=== PATIENT | female | born 1990 | race African-American/Black ===

== ENCOUNTER 2023-05-30 05:49 | Emergency (ER) | payer OTHER ==
[~2023-05-30] VITALS: Ht 157.5 cm; Wt 82.1 kg
[2023-05-30 06:03] VITALS: BP 115/73; O2SAT 100
[2023-05-30] MEDS ORDERED: ACETAMINOPHEN 325MG TABLET PO ONE (06:30)
[2023-05-30] MEDS ORDERED: TOPUD MT (06:33)
[2023-05-30 06:43] VITALS: PULSE 86; RESP 18; TEMP 99.2
== END 2023-05-30 06:44 | disposition home or self-care (01) ==
LOC: ER 06:13
DX: O26.893 Other specified pregnancy related conditions, third trimester (principal); R51.9 Headache, unspecified; Z3A.26 26 weeks gestation of pregnancy
CPT/HCPCS: 99282